=== PATIENT | male | born 1985 | race American Indian/Alaskan Native ===

== ENCOUNTER 2019-03-10 00:58 | Emergency (ER) | payer BC, OTHER ==
[2019-03-10 01:47] LABS: Basophils # (Auto) 0.1 K/mm3 (0.0-0.1); Basophils % (Auto) 0.9 % (0.0-1.8); Eosinophils # (Auto) 0.2 K/mm3 (0.0-0.4); Eosinophils % (Auto) 2.6 % (0.0-4.3); Hematocrit 39.5 % (35.5-45.6); Hemoglobin 13.7 gm/dl (11.8-15.2); Lymphocytes % (Auto) 47.6 % (13.4-35.0); Mean Corpuscular HGB Conc 35 % (32-34); Mean Corpuscular Volume 98 fl (84-94); Monocytes # (Auto) 0.4 K/mm3 (0.0-0.8); Monocytes % (Auto) 6.6 % (0.0-7.3); Platelet Count 266 K/mm3 (140-440); Red Blood Count 4.04 M/mm3 (3.65-5.03); Red Cell Distribution Width 12.3 % (13.2-15.2)
[2019-03-10 02:02] LABS: Alanine Aminotransferase 27 units/L (7-56); Albumin 4.1 g/dL (3.9-5); BUN/Creatinine Ratio 8; Blood Urea Nitrogen 7 mg/dL (9-20); Calcium 8.8 mg/dL (8.4-10.2); Hemolysis Index 14
[2019-03-10] MEDS ORDERED: NACL 0.9% 1000 ML 1,000 ML IV ONE (03:18)
--- NOTE | 2019-03-10 03:21 | Emergency Department Report ---
ED Dizziness HPI - General Chief Complaint: Dizziness Stated Complaint: LIGHT HEADED WEAKNESS VOMITTING Time Seen by Provider: 03/10/19 02:15 Source: patient Mode of arrival: Ambulatory Limitations: No Limitations - History of Present Illness Initial Comments: 33-year-old male presents to ED with dizziness and lightheadedness, generalized weakness 1 day. Denies headache, fever, chest pain, shortness of breath. Patient reports chronic right upper quadrant pain since having gallbladder removed. Patient reports associated nausea and decreased appetite and by mouth intake today. MD Complaint: dizziness, lightheadedness -: days(s) (1) Timing: awoke with symptoms History of Same: No Severity: moderate Improves With: nothing Worsens With: nothing Associated Symptoms: loss of appetite, malaise, weakness. denies: chest pain, cough, fever/chills, shortness of breath - Related Data Previous Rx's Medication Instructions Recorded Last Taken Type Acetaminophen [Tylenol Arthritis] 650 mg PO QID PRN #30 tablet.er 07/01/16 Unknown Rx Famotidine [Pepcid] 20 mg PO QDAY #30 tablet 07/01/16 Unknown Rx Allergies Allergy/AdvReac Type Severity Reaction Status Date / Time No Known Allergies Allergy Verified 12/27/15 16:30 ED Review of Systems ROS: Stated complaint: LIGHT HEADED WEAKNESS VOMITTING Other details as noted in HPI Comment: All other systems reviewed and negative Constitutional: malaise. denies: chills, fever Respiratory: denies: cough, shortness of breath Cardiovascular: denies: chest pain Gastrointestinal: abdominal pain, nausea. denies: vomiting, diarrhea Neurological: vertigo. denies: headache ED Past Medical Hx - Past Medical History Hx Hypertension: No Hx Heart Attack/AMI: No Hx Congestive Heart Failure: No Hx Diabetes: No Hx Liver Disease: No Hx Renal Disease: No Hx Sickle Cell Disease: No Hx Seizures: No Hx Asthma: No Hx COPD: No Hx HIV: No Additional medical history: Gallstones - Surgical History Hx Cholecystectomy: Yes - Social History Smoking Status: Current Every Day Smoker Substance Use Type: None - Medications Home Medications: Home Medications Medication Instructions Recorded Confirmed Last Taken Type Acetaminophen [Tylenol Arthritis] 650 mg PO QID PRN #30 tablet.er 07/01/16 Unknown Rx Famotidine [Pepcid] 20 mg PO QDAY #30 tablet 07/01/16 Unknown Rx ED Physical Exam - General Limitations: No Limitations General appearance: alert, in no apparent distress - Head Head exam: Present: atraumatic, normocephalic - Eye Eye exam: Present: normal appearance - ENT ENT exam: Present: mucous membranes moist - Neck Neck exam: Present: normal inspection - Respiratory Respiratory exam: Present: normal lung sounds bilaterally. Absent: respiratory distress - Cardiovascular Cardiovascular Exam: Present: regular rate, normal rhythm - GI/Abdominal GI/Abdominal exam: Present: soft, tenderness (mild RUQ tenderness). Absent: distended - Extremities Exam Extremities exam: Present: normal inspection - Neurological Exam Neurological exam: Present: alert, oriented X3, CN II-XII intact. Absent: motor sensory deficit - Psychiatric Psychiatric exam: Present: normal affect, normal mood - Skin Skin exam: Present: warm, dry, intact, normal color ED Course Vital Signs 03/10/19 03/10/19 01:05 02:53 Temperature 98.4 F Pulse Rate 74 Pulse Rate [ 57 L Lying] Pulse Rate [ 55 L Sitting] Pulse Rate [ 61 Standing] Respiratory 20 Rate Blood Pressure 129/77 Blood Pressure 115/73 [Lying] Blood Pressure 130/87 [Sitting] Blood Pressure 124/89 [Standing] O2 Sat by Pulse 96 Oximetry ED Medical Decision Making - Lab Data Result diagrams: 03/10/19 01:11 03/10/19 01:11 - EKG Data -: EKG Interpreted by Al EKG shows normal: sinus rhythm, axis, intervals, QRS complexes, ST-T waves Rate: normal - EKG Data Interpretation: no acute changes - Radiology Data Radiology results: report reviewed, image reviewed - Medical Decision Making 33 yo M w/ dizziness, nausea, generalized weakness. Vitals normal. Labs unremarkable. Pt not orthostatic. No signs of infection. CT Head obtained due to complaint of dizziness and found to be normal. No neuro deficits. EKG normal. IV fluids given. Pt states he is feeling better. Pt unable to give urine sample even after IV fluids and drinking water. Pt refused urine cath. Explained that we will not be able to determine if he may have a uti which may be causing his symptoms. Pt understands. Likely no UTI, as pt denies urinary sx's, is afebrile, and has normal WBC. - Differential Diagnosis dehydration, arrythmia, intracranial abnormality, infection Critical care attestation.: If time is entered above; I have spent that time in minutes in the direct care of this critically ill patient, excluding procedure time. ED Disposition Clinical Impression: Dehydration, Generalized weakness Disposition: DC-01 TO HOME OR SELFCARE Is pt being admited?: No Condition: Stable Instructions: Dehydration (ED), Weakness (ED) Referrals: [facility] [Provider Group] - 3-5 Days Forms: Work/School Release Form(ED) Time of Disposition: 05:09
--- NOTE | 2019-03-10 04:02 | Cat Scan Report ---
PROCEDURE: CT HEAD/BRAIN WO CON TECHNIQUE: Computerized tomography of the head was performed without contrast material. HISTORY: dizziness COMPARISONS: None . FINDINGS: The ventricles, cisterns and sulci are within normal limits. No intra parenchymal or extra-axial mas s, hemorrhage, or mass effect. [place] and white-matter differentiation is within normal limits. Normal spherical shape of the globes. Imaged portions of the paranasal sinuses and mastoid air cells are clear. No skull or facial fracture visualized. IMPRESSION: No acute intracranial abnormality. This document is electronically signed by Efrem Wallace MD., Mar 10 2019 03:59:59 AM ET
[2019-03-10 06:06] VITALS: BP 132/84
== END 2019-03-10 05:51 | disposition home or self-care (01) ==
LOC: ED 00:58
DX: E86.0 Dehydration (principal); F17.200 Nicotine dependence, unspecified, uncomplicated; Z90.89 Acquired absence of other organs; Z79.899 Other long term (current) drug therapy
CPT/HCPCS: 36415; 70450; 80053; 85025; 93005; 93010; 96360; 99284; J7030

== ENCOUNTER 2019-09-19 17:50 | Emergency (ER) | payer SELFPAY ==
[2019-09-19] MEDS ORDERED: dexAMETHasone 20 MG/5 ML VIAL IM ONE (21:30)
[2019-09-19] MEDS ORDERED: KETOROLAC 30 MG/1 ML INJ IM ONE (21:30)
[2019-09-19] MEDS ORDERED: ACETAMINOPHEN 500 MG TAB PO ONE (21:30)
[2019-09-19] MEDS ORDERED: AMOXICILLIN/K CLAV 875/125MG TAB PO ONE (21:31)
--- NOTE | 2019-09-19 21:53 | Emergency Department Report ---
ED General Adult HPI - General Chief complaint: Sore Throat Stated complaint: LIGHT HEADED, SORE THROAT Source: patient Mode of arrival: Ambulatory Limitations: No Limitations - History of Present Illness Initial comments: Patient is a 34-year-old -Cypriot male with no past medical history who presents to the ED with complaint of acute onset persistent severe sore throat with dysphagia, swollen tonsils, diffuse body aches and pains and intermittent fever and chills with lack of appetite and headache for the last 3 days. Patient denies dizziness, syncope, chest pain, shortness of breath, cough, abdominal pain, nausea and vomiting or change in vision. Patient states that no one else at home has had similar symptoms. MD Complaint: Sore throat, dysphagia, fever, chills, diffuse body aches -: Sudden, days(s) (3) Location: mouth Radiation: non-radiation Severity scale (0 -10): 7 Quality: aching, sharp Consistency: constant Improves with: none Worsens with: eating Associated Symptoms: denies other symptoms, cough, fever/chills, headaches, loss of appetite, malaise. denies: confusion, chest pain, diaphoresis, nausea/vomiting, rash, seizure, shortness of breath, syncope, weakness, other Treatments Prior to Arrival: none - Related Data Previous Rx's Medication Instructions Recorded Last Taken Type Acetaminophen [Tylenol Arthritis] 650 mg PO QID PRN #30 tablet.er 07/01/16 Unknown Rx Famotidine [Pepcid] 20 mg PO QDAY #30 tablet 07/01/16 Unknown Rx Acetaminophen/Codeine [Tylenol 1 tab PO Q6H PRN #10 tab 09/19/19 Unknown Rx /Codeine # 3 tab] Ibuprofen [Motrin] 800 mg PO Q8HR PRN #30 tablet 09/19/19 Unknown Rx Lidocaine Viscous 2% 10 ml PO Q6H PRN #120 ml 09/19/19 Unknown Rx Penicillin V Potassium 500 mg PO Q6H #40 tablet 09/19/19 Unknown Rx Prednisone [predniSONE 10 mg 10 mg PO .TAPER #21 tab.ds.pk 09/19/19 Unknown Rx (6-Day Pack, 21 Tabs)] Allergies Allergy/AdvReac Type Severity Reaction Status Date / Time No Known Allergies Allergy Verified 12/27/15 16:30 ED Review of Systems ROS: Stated complaint: LIGHT HEADED, SORE THROAT Other details as noted in HPI Constitutional: chills, fever, malaise, weakness Eyes: denies: eye pain, eye discharge, vision change ENT: throat pain, congestion. denies: ear pain Respiratory: denies: cough, orthopnea, shortness of breath, SOB with exertion, SOB at rest, wheezing Cardiovascular: denies: chest pain, palpitations Endocrine: no symptoms reported Gastrointestinal: denies: abdominal pain, nausea, vomiting, diarrhea Genitourinary: denies: urgency, dysuria Musculoskeletal: arthralgia, myalgia. denies: back pain, joint swelling Skin: denies: rash, lesions Neurological: headache. denies: weakness, paresthesias Psychiatric: denies: anxiety, depression Hematological/Lymphatic: denies: easy bleeding, easy bruising ED Past Medical Hx - Past Medical History Hx Hypertension: No Hx Heart Attack/AMI: No Hx Congestive Heart Failure: No Hx Diabetes: No Hx Liver Disease: No Hx Renal Disease: No Hx Sickle Cell Disease: No Hx Seizures: No Hx Asthma: No Hx COPD: No Hx HIV: No Additional medical history: Gallstones - Surgical History Hx Cholecystectomy: Yes - Social History Smoking Status: Current Some Day Smoker Substance Use Type: Marijuana - Medications Home Medications: Home Medications Medication Instructions Recorded Confirmed Last Taken Type Acetaminophen [Tylenol Arthritis] 650 mg PO QID PRN #30 tablet.er 07/01/16 Unknown Rx Famotidine [Pepcid] 20 mg PO QDAY #30 tablet 07/01/16 Unknown Rx Acetaminophen/Codeine [Tylenol 1 tab PO Q6H PRN #10 tab 09/19/19 Unknown Rx /Codeine # 3 tab] Ibuprofen [Motrin] 800 mg PO Q8HR PRN #30 tablet 09/19/19 Unknown Rx Lidocaine Viscous 2% 10 ml PO Q6H PRN #120 ml 09/19/19 Unknown Rx Penicillin V Potassium 500 mg PO Q6H #40 tablet 09/19/19 Unknown Rx Prednisone [predniSONE 10 mg 10 mg PO .TAPER #21 tab.ds.pk 09/19/19 Unknown Rx (6-Day Pack, 21 Tabs)] ED Physical Exam - General Limitations: No Limitations General appearance: alert, in no apparent distress - Head Head exam: Present: atraumatic, normocephalic, normal inspection - Eye Eye exam: Present: normal appearance, PERRL Pupils: Present: normal accommodation - ENT ENT exam: Present: mucous membranes moist, other (erythematous oropharynx and tonsils with mild swelling; no sign of peritonsillar abscess) - Neck Neck exam: Present: normal inspection, full ROM, lymphadenopathy. Absent: tenderness - Respiratory Respiratory exam: Present: normal lung sounds bilaterally. Absent: respiratory distress, wheezes, rales, rhonchi, chest wall tenderness, decreased breath sounds - Cardiovascular Cardiovascular Exam: Present: normal rhythm, tachycardia, normal heart sounds. Absent: systolic murmur, diastolic murmur, rubs, gallop - GI/Abdominal GI/Abdominal exam: Present: soft, normal bowel sounds. Absent: tenderness, guarding, hyperactive bowel sounds, hypoactive bowel sounds, organomegaly - Extremities Exam Extremities exam: Present: normal inspection, full ROM, normal capillary refill - Back Exam Back exam: Present: normal inspection, full ROM. Absent: muscle spasm, paraspinal tenderness - Neurological Exam Neurological exam: Present: alert, oriented X3, CN II-XII intact, normal gait, reflexes normal - Psychiatric Psychiatric exam: Present: normal affect, normal mood - Skin Skin exam: Present: warm, dry, intact, normal color. Absent: rash, urticaria, vesicles ED Course Vital Signs 09/19/19 18:46 Temperature 100.1 F H Pulse Rate 105 H Respiratory 18 Rate Blood Pressure 137/94 ED Medical Decision Making - Medical Decision Making This is a 34-year-old male who presented to the ED with a sore throat and dysphagia with intermittent fever and chills and diffuse body aches and pains for 3 days. In the ED, patient is alert and oriented 3 and is not in distress, but tachycardic and febrile in triage. Patient was treated for pain in the ED and also receives Decadron, pain medications and initial oral antibiotics for a suspected acute streptococcal pharyngitis. Patient was then discharged home on antibiotics, steroids and pain medications and advised to follow-up with his primary care physician in 5-7 days for reevaluation or return to the ED immediately if symptoms get worse. - Differential Diagnosis Strep pharyngitis; Viral pharyngitis; URI; Flu Critical care attestation.: If time is entered above; I have spent that time in minutes in the direct care of this critically ill patient, excluding procedure time. ED Disposition Clinical Impression: Acute streptococcal pharyngitis, Fever and chills Acute streptococcal tonsillitis Qualifiers: Streptococcal tonsillitis recurrence: non-recurrent Qualified Code(s): J03.00 - Acute streptococcal tonsillitis, unspecified Disposition: TO HOME OR SELFCARE Is pt being admited?: No Does the pt Need Aspirin: No Condition: Stable Instructions: Tonsillitis (ED), Strep Throat (ED), Fever in Adults (ED) Additional Instructions: Take medication with food, drink plenty of fluids and follow-up with your primary care physician in 5-7 days for reevaluation. Return to the ED immediately if symptoms get worse. Prescriptions: Lidocaine Viscous 2% 10 ml PO Q6H PRN #120 ml PRN Reason: Pain , Severe (7-10) Ibuprofen [Motrin] 800 mg PO Q8HR PRN #30 tablet PRN Reason: Pain , Severe (7-10) Penicillin V Potassium 500 mg PO Q6H #40 tablet Prednisone [predniSONE 10 mg (6-Day Pack, 21 Tabs)] 10 mg PO .TAPER #21 tab.ds.pk Acetaminophen/Codeine [Tylenol /Codeine # 3 tab] 1 tab PO Q6H PRN #10 tab PRN Reason: Pain , Severe (7-10) Referrals: RHETT ALFREDO MD [Staff Physician] - 7-10 days Forms: Work/School Release Form(ED) Time of Disposition: 21:57 Print Language: KHMER
[2019-09-19 22:53] VITALS: BP 151/84
== END 2019-09-19 22:53 | disposition home or self-care (01) ==
LOC: ED 17:50
DX: J02.0 Streptococcal pharyngitis (principal); J03.00 Acute streptococcal tonsillitis, unspecified; F17.200 Nicotine dependence, unspecified, uncomplicated; F12.10 Cannabis abuse, uncomplicated; Z79.899 Other long term (current) drug therapy
CPT/HCPCS: 96372; 99282; J1100; J1885

== ENCOUNTER 2021-09-07 11:41 | Emergency (ER) | payer SELFPAY ==
[2021-09-07 11:56] VITALS: BP 154/87
[2021-09-07] MEDS ORDERED: IBUPROFEN 600 MG TAB PO ONE (12:12)
--- NOTE | 2021-09-07 12:12 | Emergency Department Report ---
ED General Adult HPI - General Chief complaint: Extremity Problem,Nontraumatic Stated complaint: RIGHT FOOT SWOLLEN PUI?: No Time Seen by Provider: 09/07/21 12:01 Source: patient Mode of arrival: Ambulatory Limitations: No Limitations - History of Present Illness Initial comments: 35-year-old male presents to the ER today with complaints of right foot swelling. Patient states that about a week ago he noticed some swelling to both his right and left foot. He states that he is taking water pills which he got from his brother. He states that the swelling had improved in both feet, but 3 days ago he started swelling again with soreness and pain to the dorsal aspect of his right foot. He reports increased pain to the dorsal aspect of his foot with weightbearing and walking. He denies any particular injury. 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 He also admits that he has had his diet has not been very good since he does not have a place to stay and he has been drinking lots of sodas and eating salty foods. He denies any bruising or redness to his foot. He reports no tingling, numbness or weakness. He reports no chest pain or shortness of breath. MD Complaint: Right foot swelling/pain -: Gradual, days(s) (3) Severity scale (0 -10): 6 - Related Data Previous Rx's Medication Instructions Recorded Last Taken Type Ibuprofen [Motrin] 600 mg PO Q8H PRN #30 tablet 09/07/21 Unknown Rx Allergies Allergy/AdvReac Type Severity Reaction Status Date / Time No Known Allergies Allergy Verified 09/07/21 11:56 ED Review of Systems ROS: Stated complaint: RIGHT FOOT SWOLLEN Other details as noted in HPI Comment: All other systems reviewed and negative Respiratory: denies: cough, shortness of breath, wheezing Cardiovascular: denies: chest pain, palpitations Musculoskeletal: joint swelling, arthralgia ED Past Medical Hx - Past Medical History Hx Hypertension: No Hx Heart Attack/AMI: No Hx Congestive Heart Failure: No Hx Diabetes: No Hx Liver Disease: No Hx Renal Disease: No Hx Sickle Cell Disease: No Hx Seizures: No Hx Asthma: No Hx COPD: No Hx HIV: No Additional medical history: Gallstones - Surgical History Hx Cholecystectomy: Yes - Social History Smoking Status: Unknown if ever smoked - Medications Home Medications: Home Medications Medication Instructions Recorded Confirmed Last Taken Type Ibuprofen [Motrin] 600 mg PO Q8H PRN #30 tablet 09/07/21 Unknown Rx ED Physical Exam - General Limitations: No Limitations General appearance: alert, in no apparent distress, obese - Head Head exam: Present: atraumatic, normocephalic, normal inspection - Respiratory Respiratory exam: Absent: respiratory distress - Cardiovascular Cardiovascular Exam: Present: regular rate - Expanded Lower Extremity Exam Right Lower Leg exam: Present: normal inspection, full ROM. Absent: tenderness, swelling, erythema, palpable cord, Caroline's sign Ankle exam: Present: full ROM, swelling (mild ). Absent: tenderness, abrasion, laceration, ecchymosis, deformity, crepidus, dislocation, erythema Foot/Toe exam: Present: full ROM, tenderness (mild dorsal right foot ), swelling (mild-mod dorsal foot ). Absent: abrasion, laceration, ecchymosis, deformity, crepidus, erythema, amputation, puncture wound, foreign body, tenderness at base of 5th metatarsal Neuro vascular tendon exam: Present: no vascular compromise. Absent: abnormal cap refill, motor deficit, sensory deficit, tendon deficit Gait: Positive: observed and normal - Neurological Exam Neurological exam: Present: alert, oriented X3, CN II-XII intact, normal gait - Psychiatric Psychiatric exam: Present: normal affect, normal mood - Skin Skin exam: Present: intact ED Course Vital Signs 09/07/21 11:41 Temperature 98.4 F Pulse Rate 82 Respiratory 18 Rate Blood Pressure 154/87 [Right] O2 Sat by Pulse 97 Oximetry ED Medical Decision Making - Radiology Data interpreted by me: Patient: JUANY NICKERSON MR#: [id number] : 1985 Acct:[id number] Age/Sex: 35 / M ADM Date: 09/07/21 Loc: ED Attending Dr: Ordering Physician: BARBARA COY Date of Service: 09/07/21 Procedure(s): XR foot 3+V RT Accession Number(s): [id number] cc: BARBARA COY Fluoro Time In Minutes: RIGHT FOOT 3 VIEW(S) INDICATION / CLINICAL INFORMATION: dorsal pain and swelling COMPARISON: None available. FINDINGS: BONES / JOINT(S): No acute fracture or subluxation. No significant arthritis. SOFT TISSUES: Dorsal soft tissue swelling about the foot. ADDITIONAL FINDINGS: Bipartite medial hallux sesamoid incidentally noted. Signer Name: Hesham Andrade MD Signed: 09/07/2021 12:45 PM Workstation Name: [id number] Transcribed By: POONAM Dictated By: HESHAM ANDRADE MD Electronically Authenticated By: HESHAM ANDRADE MD Signed Date/Time: 09/07/211244 DD/ 43 TD/TT: Patient: JUANY NICKERSON MR#: [id number] : 1985 Acct:[id number] Age/Sex: 35 / M ADM Date: 09/07/21 Loc: ED Attending Dr: Ordering Physician: BARBARA COY Date of Service: 09/07/21 Procedure(s): VL venous duplex LE RT Accession Number(s): [id number] cc: BARBARA COY DUPLEX DOPPLER LOWER EXTREMITY VEINS, RIGHT INDICATION / CLINICAL INFORMATION: Swelling. TECHNIQUE: Duplex doppler imaging was performed through the veins of the right lower extremity using venous compression and other maneuvers. COMPARISON: None available. FINDINGS: RIGHT COMMON FEMORAL VEIN: Negative. RIGHT FEMORAL VEIN: Negative. RIGHT POPLITEAL VEIN: Negative. RIGHT CALF VEINS: Negative. ADDITIONAL FINDINGS: None. IMPRESSION: 1. No sonographic evidence for DVT in the right lower extremity. Signer Name: Hesham Andrade MD Signed: 09/07/2021 2:05 PM Workstation Name: [id number] Transcribed By: POONAM Dictated By: HESHAM ANDRADE MD Electronically Authenticated By: HESHAM ANDRADE MD Signed Date/Time: 09/07/211404 DD/ 140 TD/TT: - Medical Decision Making xray show soft tissue swelling, but otherwise no acute. Venous doppler negative. PE does not suggest cellulitis, osteomyelitis, septic joint, acute arterial occlusion, or CHF or other concerning emergent conditions at this time. No other work up indicated at this time. Exact cause swelling unclear. Discussed results with patient, commended he decrease his salt intake, elevating his leg as often as possible and use [id number] compression socks. He will be given referral to heating unit installer for further evaluation. Critical care attestation.: If time is entered above; I have spent that time in minutes in the direct care of this critically ill patient, excluding procedure time. ED Disposition Clinical Impression: Foot swelling Disposition: 01 HOME / SELF CARE / HOMELESS Is pt being admited?: No Does the pt Need Aspirin: No Condition: Stable Instructions: Foot Pain, Peripheral Edema Additional Instructions: Recommend that you elevate your foot as often as possible. You can get compression socks from [id number] to the use and it will help with the swelling. Take ibuprofen as prescribed for pain. Follow-up with the heating unit installer listed on your discharge instructions if your symptoms persist. Return to the ER if your symptoms changes or worsens in any way. Prescriptions: Ibuprofen [Motrin] 600 mg PO Q8H PRN #30 tablet PRN Reason: Pain Referrals: MARIANGEL WEATHERS DPM [Staff Physician] - 3-5 Days Time of Disposition: 14:23
--- NOTE | 2021-09-07 12:49 | XRay Report ---
RIGHT FOOT 3 VIEW(S) INDICATION / CLINICAL INFORMATION: dorsal pain and swelling COMPARISON: None available. FINDINGS: BONES / JOINT(S): No acute fracture or subluxation. No significant arthritis. SOFT TISSUES: Dorsal soft tissue swelling about the foot. ADDITIONAL FINDINGS: Bipartite medial hallux sesamoid incidentally noted. Signer Name: Hesham Andrade MD Signed: 09/07/2021 12:45 PM Workstation Name: [id number]
--- NOTE | 2021-09-07 14:10 | Vascular Lab Report ---
DUPLEX DOPPLER LOWER EXTREMITY VEINS, RIGHT INDICATION / CLINICAL INFORMATION: Swelling. TECHNIQUE: Duplex doppler imaging was performed through the veins of the right lower extremity using venous compression and other maneuvers. COMPARISON: None available. FINDINGS: RIGHT COMMON FEMORAL VEIN: Negative. RIGHT FEMORAL VEIN: Negative. RIGHT POPLITEAL VEIN: Negative. RIGHT CALF VEINS: Negative. ADDITIONAL FINDINGS: None. IMPRESSION: 1. No sonographic evidence for DVT in the right lower extremity. Signer Name: Hesham Andrade MD Signed: 09/07/2021 2:05 PM Workstation Name: [id number]
== END 2021-09-07 14:41 | disposition home or self-care (01) ==
LOC: ED 11:41
DX: R22.43 Localized swelling, mass and lump, lower limb, bilateral (principal)
CPT/HCPCS: 99284

== ENCOUNTER 2021-10-13 21:54 | Emergency (ER) | payer SELFPAY ==
[2021-10-14] MEDS ORDERED: IBUPROFEN 600 MG TAB PO ONE (01:20)
[2021-10-14] MEDS ORDERED: predniSONE 20 MG TAB PO ONE (01:20)
[2021-10-14] MEDS ORDERED: traMADol 50 MG TAB PO ONE (01:20)
--- NOTE | 2021-10-14 01:43 | XRay Report ---
LEFT KNEE, 3 VIEWS INDICATION / CLINICAL INFORMATION: PAIN. COMPARISON: None available. FINDINGS: No significant degenerative change. No fracture or malalignment. There is a very small suprapatellar joint effusion noted. IMPRESSION: Small suprapatellar joint effusion. Signer Name: Halima Harrington MD Signed: 10/14/2021 1:39 AM Workstation Name: [id number]
--- NOTE | 2021-10-14 01:51 | Emergency Department Report ---
ED Extremity Problem HPI - General Chief complaint: Extremity Injury, Lower Stated complaint: SWOLLEN KNEE, PAIN IN KNEE Source: patient Mode of arrival: Ambulatory Limitations: No Limitations - History of Present Illness Initial comments: Patient is a 36-year-old -[place] male with no past medical history who presented to the ED with complaint of acute onset persistent severe nontraumatic left knee pain with swelling for the last 2 days, worse in the last 12 hours. Patient states that the pain work got worse in the last 12 hours such that he was unable to bear weight on the left leg because of worsening pain. Patient denies head or neck injuries, back pain, fall, heavy lifting, low back pain, numbness and tingling or weakness of lower extremities bilaterally, chest pain or shortness of breath, fever and chills. MD Complaint: extremity pain (left knee), extremity swelling (left knee), joint swelling (left knee), joint paint (left knee) -: Sudden, days(s) (2) Location: left (left knee), lower extremity (left knee), knee (left knee pain) History of Same: Yes -: Yes arthralgia, No fever, No associated dyspnea, No associated chest pain Radiation: none Severity scale (0 -10): 7 Quality: aching, sharp Consistency: constant Improves with: nothing Worsens with: weight bearing, walking, exertion, palpation Associated Symptoms: denies other symptoms, arthralgias (left knee joint pain). denies: chest pain, shortness of breath, fever, myalgias, rash - Related Data Previous Rx's Medication Instructions Recorded Last Taken Type Ibuprofen [Motrin] 600 mg PO Q8H PRN #30 tablet 09/07/21 Unknown Rx Ibuprofen [Motrin] 800 mg PO Q8HR PRN #30 tablet 10/14/21 Unknown Rx predniSONE [Deltasone] 60 mg PO QDAY #15 tab 10/14/21 Unknown Rx traMADoL [Ultram] 50 mg PO Q6HR PRN #12 tablet 10/14/21 Unknown Rx Allergies Allergy/AdvReac Type Severity Reaction Status Date / Time No Known Allergies Allergy Verified 09/07/21 11:56 ED Review of Systems ROS: Stated complaint: SWOLLEN KNEE, PAIN IN KNEE Other details as noted in HPI Constitutional: denies: chills, fever Eyes: denies: eye pain, eye discharge, vision change ENT: denies: ear pain, throat pain Respiratory: denies: cough, shortness of breath, wheezing Cardiovascular: denies: chest pain, palpitations Endocrine: no symptoms reported Gastrointestinal: denies: abdominal pain, nausea, diarrhea Genitourinary: denies: urgency, dysuria Musculoskeletal: arthralgia (left knee pain). denies: back pain, joint swelling Skin: denies: rash, lesions Neurological: denies: headache, weakness, paresthesias Psychiatric: denies: anxiety, depression Hematological/Lymphatic: denies: easy bleeding, easy bruising ED Past Medical Hx - Past Medical History Hx Hypertension: No Hx Heart Attack/AMI: No Hx Congestive Heart Failure: No Hx Diabetes: No Hx Liver Disease: No Hx Renal Disease: No Hx Sickle Cell Disease: No Hx Seizures: No Hx Asthma: No Hx COPD: No Hx HIV: No Additional medical history: Gallstones - Surgical History Hx Cholecystectomy: Yes - Social History Smoking Status: Unknown if ever smoked - Medications Home Medications: Home Medications Medication Instructions Recorded Confirmed Last Taken Type Ibuprofen [Motrin] 600 mg PO Q8H PRN #30 tablet 09/07/21 Unknown Rx Ibuprofen [Motrin] 800 mg PO Q8HR PRN #30 tablet 10/14/21 Unknown Rx predniSONE [Deltasone] 60 mg PO QDAY #15 tab 10/14/21 Unknown Rx traMADoL [Ultram] 50 mg PO Q6HR PRN #12 tablet 10/14/21 Unknown Rx ED Physical Exam - General Limitations: No Limitations General appearance: alert, in no apparent distress - Head Head exam: Present: atraumatic, normocephalic, normal inspection - Eye Eye exam: Present: normal appearance, PERRL, EOMI Pupils: Present: normal accommodation - ENT ENT exam: Present: normal exam, normal orophraynx, mucous membranes moist, TM's normal bilaterally, normal external ear exam - Neck Neck exam: Present: normal inspection, full ROM - Respiratory Respiratory exam: Present: normal lung sounds bilaterally. Absent: respiratory distress, wheezes, rales, rhonchi, chest wall tenderness, accessory muscle use, decreased breath sounds, prolonged expiratory - Cardiovascular Cardiovascular Exam: Present: regular rate, normal rhythm, normal heart sounds. Absent: systolic murmur, diastolic murmur, rubs, gallop - GI/Abdominal GI/Abdominal exam: Present: soft, normal bowel sounds. Absent: tenderness, guarding, rebound, hyperactive bowel sounds, hypoactive bowel sounds, organomegaly - Extremities Exam Extremities exam: Present: normal inspection, full ROM, tenderness (Palpable severe left knee tenderness), normal capillary refill. Absent: pedal edema, joint swelling, calf tenderness - Back Exam Back exam: Present: normal inspection, full ROM. Absent: tenderness, CVA tenderness (R), CVA tenderness (L), muscle spasm, paraspinal tenderness, vertebral tenderness - Neurological Exam Neurological exam: Present: alert, oriented X3, CN II-XII intact, normal gait, reflexes normal - Psychiatric Psychiatric exam: Present: normal affect, normal mood - Skin Skin exam: Present: warm, dry, intact, normal color. Absent: rash ED Course Vital Signs 10/13/21 23:32 Temperature 98.5 F Pulse Rate 94 H Respiratory 18 Rate Blood Pressure 126/84 [Right] O2 Sat by Pulse 98 Oximetry ED Medical Decision Making - Radiology Data Radiology results: report reviewed, image reviewed [address] [address] XRay Report Signed Patient: JUANY NICKERSON MR#: [id number] : 1985 Acct:[id number] Age/Sex: 36 / M ADM Date: 10/13/21 Loc: ED Attending Dr: Ordering Physician: THUY MORFIN Date of Service: 10/14/21 Procedure(s): XR knee 3V LT Accession Number(s): [id number] cc: THUY MORFIN Fluoro Time In Minutes: LEFT KNEE, 3 VIEWS INDICATION / CLINICAL INFORMATION: PAIN. COMPARISON: None available. FINDINGS: No significant degenerative change. No fracture or malalignment. There is a very small suprapatellar joint effusion noted. IMPRESSION: Small suprapatellar joint effusion. Signer Name: Halima Harrington MD Signed: 10/14/2021 1:39 AM Workstation Name: [id number] Transcribed By: Dictated By: Halima Harrington MD Electronically Authenticated By: Halima Harrington MD Signed Date/Time: 10/14/21138 DD/ 7 TD/TT: Print Cancel - Medical Decision Making This is a 36-year-old -[place] male with no past medical history who presented to the ED with complaint of acute onset persistent severe nontraumatic left knee pain with swelling for the last 2 days, worse in the last 12 hours. Patient states that the pain work got worse in the last 12 hours such that he was unable to bear weight on the left leg because of worsening pain. In the ED, patient is alert and oriented x3 and is not in any distress. Patient however appears to be in pain. Patient was treated for pain in the ED and left knee x- ray showed no acute fractures or subluxations but a small suprapatellar joint effusion. The patient left knee was splinted with Frederick wrap, and patient pain is likely due to muscle strain, bursitis versus tendinitis due to overuse by climbing onto a truck. Patient was therefore discharged home on pain medications and advised to follow-up with his primary care physician in 7 to 10 days for reevaluation. Patient was also given a referral to the orthopedic surgeon Dr. Leblanc for further evaluation. Patient was advised return to the ED immediately if symptoms get worse. - Differential Diagnosis knee sprain; tendonitis; muscle strain; DJD of knee Critical care attestation.: If time is entered above; I have spent that time in minutes in the direct care of this critically ill patient, excluding procedure time. ED Disposition Clinical Impression: Left knee tendonitis, Prepatellar bursitis of left knee Sprain of left knee Qualifiers: Encounter type: initial encounter Involved ligament of knee: unspecified ligament Qualified Code(s): S83.92XA - Sprain of unspecified site of left knee, initial encounter Muscle strain of left knee Qualifiers: Encounter type: initial encounter Qualified Code(s): S86.912A - Strain of unspecified muscle(s) and tendon(s) at lower leg level, left leg, initial encounter Disposition: 01 HOME / SELF CARE / HOMELESS Is pt being admited?: No Does the pt Need Aspirin: No Condition: Stable Instructions: Elastic Bandage and RICE Therapy, Muscle Strain, [id number], Knee Sprain, Adult, [id number], Bursitis, [id number], Tendinitis, [id number] Additional Instructions: Left knee x-ray showed no acute fractures or subluxations but ligament injury or tendinitis cannot rule out. Therefore take medications with food, drink plenty of fluids, follow-up with the orthopedic surgeon Dr. Leblanc as needed for further evaluation. Otherwise follow-up with your primary care physician in 7 to 10 days for reevaluation. Prescriptions: predniSONE [Deltasone] 60 mg PO QDAY #15 tab Ibuprofen [Motrin] 800 mg PO Q8HR PRN #30 tablet PRN Reason: Pain , Severe (7-10) traMADoL [Ultram] 50 mg PO Q6HR PRN #12 tablet PRN Reason: Pain Referrals: [facility] [Provider Group] - 3-5 Days EDI LEBLANC MD [Staff Physician] - 7-10 days Forms: Work/School Release Form(ED) Time of Disposition: 01:49 Print Language: PALESTINIAN
[2021-10-14 02:24] VITALS: BP 143/76
== END 2021-10-14 02:23 | disposition home or self-care (01) ==
LOC: ED 21:54
DX: S83.92XA Sprain of unspecified site of left knee, initial encounter (principal); S86.912A Strain of unspecified muscle(s) and tendon(s) at lower leg level, left leg, initial encounter; M76.52 Patellar tendinitis, left knee; M70.42 Prepatellar bursitis, left knee; Z90.49 Acquired absence of other specified parts of digestive tract; X58.XXXA Exposure to other specified factors, initial encounter; Y93.89 Activity, other specified; Y92.89 Other specified places as the place of occurrence of the external cause; Y99.8 Other external cause status
CPT/HCPCS: 73562; 99283; J7512